=== PATIENT | female | born 2000 | race Caucasian/White ===

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

== ENCOUNTER 2021-04-08 16:46 | Emergency (ER) | payer OTHER ==
[~2021-04-08] VITALS: Ht 154.9 cm; Wt 68.0 kg
[2021-04-08 16:53] VITALS: BP 127/74
--- NOTE | 2021-04-08 16:55 | NUR ---
PT TO AWAIT IN LOBBY
--- NOTE | 2021-04-08 18:00 | NUR ---
PT AMBULATED TO BED, MOTHER AT BEDSIDE
--- NOTE | 2021-04-08 18:11 | NUR ---
RN at pt bedside for evaluation.
--- NOTE | 2021-04-08 18:17 | NUR ---
Dr. Flores at pt bedside for further evaluation.
--- NOTE | 2021-04-08 18:26 | NUR ---
20 FEMALE WITH C/O UTI S/S SINCE X3 DAYS. PT STATES BURNING PAIN UPON URINATION. PT STATES 10/10 PAIN. PT STATES SHE HAS EXPERINCED VAGINAL DISCHARGE THIS AM. RX: IBUPROFEN WITH NO RELIEF MEDHX: DENIES NKA
[2021-04-08] MEDS ORDERED: PYR100 PO (18:32)
[2021-04-08] MEDS ORDERED: ACET500P13 PO (18:32)
[2021-04-08] MEDS ORDERED: CEPH-588 PO (18:32)
[2021-04-08 18:39] VITALS: BP 124/77
--- NOTE | 2021-04-08 18:40 | NUR ---
Patient discharged with v/s stable. Written and verbal after care instructions given and explained. Patient alert, oriented and verbalized understanding of instructions. Ambulatory with steady gait. All questions addressed prior to discharge. ID band removed. Patient advised to follow up with PMD. Rx of ACETAMINOPHEN 500 MG PO Q6 HRS PRN FOR PAIN, PYRIDIUM 100 MG PO TID AND CEPHALEXIN 500 MG PO BID given. Patient educated on indication of medication including possible reaction and side effects. Opportunity to ask questions provided and answered.
== END 2021-04-08 18:40 | disposition home or self-care (01) ==
LOC: MED 16:46
DX: N39.0 Urinary tract infection, site not specified (principal); E11.9 Type 2 diabetes mellitus without complications
CPT/HCPCS: 81002; 81025; 99283

== ENCOUNTER 2021-12-07 17:10 | Emergency (ER) | payer SELFPAY ==
[~2021-12-07] VITALS: Ht 154.9 cm; Wt 72.6 kg
[~2021-12-07 17:10] MED LIST changes: +ACET500P13 PO; +CEPH-588 PO; +PYR100 PO
[2021-12-07 17:23] VITALS: BP 129/74
--- NOTE | 2021-12-07 17:34 | NUR ---
PT AMB TO BED 12.
[2021-12-07] MEDS ORDERED: NACL 0.9% 1,000 ML IV ONE (17:45)
[2021-12-07] MEDS ORDERED: METOCLOPRAMIDE 10 MG/2 ML INJ VIAL IVP ONE (17:45)
[2021-12-07] MEDS ORDERED: ACETAMINOPHEN EXTRA STRENGTH 500 MG TAB PO ONE (17:55)
--- NOTE | 2021-12-07 18:10 | NUR ---
US AT PT BEDSIDE
--- NOTE | 2021-12-07 18:48 | NUR ---
21 Y/O FEMALE BIB SELF FOR C/O LOWER BACK PAIN, NAUSEA, DIARRHEA, "CRAMPY" LOWER ABD PAIN X TODAY. PT DENIES VAGINAL DISCHARGE, VAGINAL BLEEDING. PT DENIES DYSURIA, CONSTIPATION, HEMATURIA, FEVER OR CHILLS. pT DENIES SOB, COUGH. PT IS ALERT AND ORIENTED X4. BED IN LOWEST POSITION. SIDE RAIL X1. BLOOD SUGAR 221 AT THIS TIME. PMH: DM TYPE 2 MED : METFORMIN
[2021-12-07 18:53] LABS: BASOPHILS # (AUTO) 0.1 K/uL (0.00-0.22); BASOPHILS % (AUTO) 0.5 % (0.0-2.0); EOSINOPHILS # (AUTO) 0.2 K/uL (0-0.4); EOSINOPHILS % (AUTO) 2.3 % (0.0-4.0); HEMOGLOBIN 12.9 g/dL (12.0-16.0); LYMPHOCYTES # (AUTO) 2.8 K/uL (2.5-16.5); LYMPHOCYTES % (AUTO) 26.8 % (20.5-51.1); MEAN CORPUSCULAR HEMOGLOBIN 31 pg (27-31); MEAN CORPUSCULAR HGB CONC 35 g/dL (33-37); MEAN CORPUSCULAR VOLUME 88.7 fL (80-94); MONOCYTES # (AUTO) 0.6 K/uL (0.8-1.0); MONOCYTES % (AUTO) 6.3 % (1.7-9.3); NEUTROPHILS # (AUTO) 6.6 K/uL (1.8-7.7); NEUTROPHILS % (AUTO) 64.1 % (42.2-75.2); PLATELET COUNT (AUTO) 311 K/uL (140-450); RED BLOOD CELL COUNT(AUTO) 4.17 MIL/uL (4.20-5.40); RED CELL DISTRIBUTION WIDTH 12.4 % (11.6-13.7); WHITE BLOOD COUNT (AUTO) 10.4 K/uL (4.5-11.0)
[2021-12-07 19:06] LABS: ALBUMIN 3.2 g/dL (3.4-5.0); ANION GAP 14.3 (8-16); CARBON DIOXIDE 23.2 mmol/L (21-32); CREATININE 0.5 mg/dL (0.6-1.3); POTASSIUM 3.5 mmol/L (3.5-5.1); TOTAL BILIRUBIN 0.4 mg/dL (0.0-1.0)
[2021-12-07 19:11] LABS: BILIRUBIN,URINE NEGATIVE (NEGATIVE); BLOOD, URINE NEGATIVE (NEGATIVE); LEUKOCYTE ESTERASE ,URINE NEGATIVE (NEGATIVE); NITRITE, URINE POSITIVE (NEGATIVE); UGLUCOSE 3+ (NEGATIVE)
[2021-12-07 19:21] LABS: APPEARANCE,URINE HAZY (CLEAR); COLOR,URINE YELLOW (YELLOW)
--- NOTE | 2021-12-07 19:30 | NUR ---
Pt report given to REJI YANG. Transfer of care at this time.
[2021-12-07] MEDS ORDERED: CEPH-588 PO (19:37)
[2021-12-07] MEDS ORDERED: ACET-10509 PO (19:37)
[2021-12-07 19:49] VITALS: BP 112/70
--- NOTE | 2021-12-07 19:50 | NUR ---
Patient discharged with v/s stable. Written and verbal after care instructions given and explained. Patient alert, oriented and verbalized understanding of instructions. Ambulatory with steady gait. All questions addressed prior to discharge. ID band removed. Patient advised to follow up with PMD. Rx of KEFLEX, TYLENOL given. Patient educated on indication of medication including possible reaction and side effects. Opportunity to ask questions provided and answered.
== END 2021-12-07 19:50 | disposition home or self-care (01) ==
LOC: MED 17:10
DX: O23.41 Unspecified infection of urinary tract in pregnancy, first trimester (principal); E11.9 Type 2 diabetes mellitus without complications; Z79.84 Long term (current) use of oral hypoglycemic drugs; Z79.899 Other long term (current) drug therapy
CPT/HCPCS: 36415; 76801; 80053; 81003; 81025; 82948; 84702; 85025; 96361; 96374; 99284; J2765; J7030; Q0092

== ENCOUNTER 2022-01-04 18:14 | Emergency (ER) | payer MEDICAID ==
[~2022-01-04] VITALS: Ht 154.9 cm; Wt 71.7 kg
[~2022-01-04 18:14] MED LIST changes: +ACET-10509 PO
[2022-01-04 18:31] VITALS: BP 131/78
--- NOTE | 2022-01-04 18:50 | NUR ---
C/O 6/10 LOWER BACK PAIN X 1 WEEK. 11 WEEKS. LMP 10/14/21. BLOOD SUGAR 200 AT THIS TIME. PMH: DM TYPE 2 MED: NONE
[2022-01-04] MEDS ORDERED: ACETAMINOPHEN EXTRA STRENGTH 500 MG TAB PO ONE (19:00)
--- NOTE | 2022-01-04 19:35 | NUR ---
Patient ambulated to bed 3 and change to a gown.
[2022-01-04 21:55] LABS: BILIRUBIN,URINE NEGATIVE (NEGATIVE); BLOOD, URINE NEGATIVE (NEGATIVE); COLOR,URINE YELLOW (YELLOW); LEUKOCYTE ESTERASE ,URINE NEGATIVE (NEGATIVE); NITRITE, URINE POSITIVE (NEGATIVE); PH,URINE 5.5 (5.0-9.0); UGLUCOSE 3+ (NEGATIVE)
[2022-01-04 22:03] LABS: APPEARANCE,URINE HAZY (CLEAR)
[2022-01-04] MEDS ORDERED: NITR100C7 PO (22:12)
[2022-01-04 22:39] VITALS: BP 128/70
== END 2022-01-04 22:41 | disposition home or self-care (01) ==
LOC: MED 18:14
DX: O23.41 Unspecified infection of urinary tract in pregnancy, first trimester (principal); E11.9 Type 2 diabetes mellitus without complications; Z3A.11 11 weeks gestation of pregnancy; Z79.84 Long term (current) use of oral hypoglycemic drugs; Z79.899 Other long term (current) drug therapy
CPT/HCPCS: 81003; 81025; 99283

== ENCOUNTER 2022-01-16 11:46 | Emergency (ER) | payer MEDICAID ==
[~2022-01-16] VITALS: Ht 154.9 cm; Wt 71.2 kg
[~2022-01-16 11:46] MED LIST changes: +NITR100C7 PO
[2022-01-16 11:51] VITALS: BP 119/66
--- NOTE | 2022-01-16 12:11 | NUR ---
PA MAZARIEGOS BEDSIDE EVALUATING PT
--- NOTE | 2022-01-16 12:14 | NUR ---
21/F BIBA FROM HOME WITH C/O BACK PAIN AND N/V SINCE THIS MORNING. PATIENT STATES SHE IS "AROUND 3 MONTHS ." DENIES ABDOMINAL PAIN OR VAGINAL BLEEDING. PATIENT IS A0. PATIENT STATES SHE HAS HX OF DM BUT IS NOT ON MEDICATION. PT STATED BACK PAIN IS 7/10 AND ACHE LIKE PAIN. PER PATIENT SHE IS ABLE TO DRINK WATER, BUT EATING FOOD MAKES HER EXPERINCE THE NAUSEA. PT WAS EXPERINCING SOME MINOR LOWER ABDOMINAL PAIN THIS AM, BUT DENIES ANY RIGHT NOW. NO TENDERNESS NOTED UPON PALPATION OF ABDOMEN MEDHX: DM ALLERGIES: NKA
[2022-01-16] MEDS ORDERED: NACL 0.9% 1,000 ML IV ONE (12:15)
[2022-01-16] MEDS ORDERED: ONDANSETRON 4 MG/2 ML VIAL IVP ONE (12:20)
--- NOTE | 2022-01-16 12:31 | NUR ---
PT PROVIDED WITH WARM BLANKET
--- NOTE | 2022-01-16 12:31 | NUR ---
20G IV ESTABLISHED IN R AC. FLUIDS STARTED AND BLOOD COLLECTED FROM IV
--- NOTE | 2022-01-16 12:38 | NUR ---
BLOOD COLLECTED AND WALKED TO LAB
[2022-01-16 12:49] LABS: BASOPHILS # (AUTO) 0.1 K/uL (0.00-0.22); BASOPHILS % (AUTO) 0.5 % (0.0-2.0); EOSINOPHILS # (AUTO) 0.2 K/uL (0-0.4); EOSINOPHILS % (AUTO) 1.1 % (0.0-4.0); HEMATOCRIT 39.3 % (36-48); HEMOGLOBIN 13.4 g/dL (12.0-16.0); LYMPHOCYTES # (AUTO) 1.4 K/uL (2.5-16.5); LYMPHOCYTES % (AUTO) 9.6 % (20.5-51.1); MEAN CORPUSCULAR HEMOGLOBIN 31 pg (27-31); MEAN CORPUSCULAR HGB CONC 34 g/dL (33-37); MONOCYTES # (AUTO) 0.6 K/uL (0.8-1.0); MONOCYTES % (AUTO) 4.5 % (1.7-9.3); NEUTROPHILS # (AUTO) 12.1 K/uL (1.8-7.7); NEUTROPHILS % (AUTO) 84.3 % (42.2-75.2); PLATELET COUNT (AUTO) 325 K/uL (140-450); RED BLOOD CELL COUNT(AUTO) 4.36 MIL/uL (4.20-5.40); WHITE BLOOD COUNT (AUTO) 14.4 K/uL (4.5-11.0)
[2022-01-16 13:06] LABS: ALBUMIN 3.3 g/dL (3.4-5.0); CREATININE 0.4 mg/dL (0.6-1.3); TOTAL BILIRUBIN 0.4 mg/dL (0.0-1.0)
[2022-01-16] MEDS ORDERED: DOXY1TAB6 PO (13:29)
[2022-01-16] MEDS ORDERED: METO-485 PO (13:29)
--- NOTE | 2022-01-16 13:44 | NUR ---
Patient appears to be resting comfortably in bed. Vital Signs within normal limits. Respirations even and unlabored.
--- NOTE | 2022-01-16 13:51 | NUR ---
IV removed, catheter intact and site benign. Applied folded 4x4 gauze and tape to stop bleeding.
[2022-01-16 13:54] VITALS: BP 119/55
--- NOTE | 2022-01-16 13:56 | NUR ---
Patient discharged with v/s stable. Written and verbal after care instructions given and explained. Patient alert, oriented and verbalized understanding of instructions. Ambulatory with steady gait. All questions addressed prior to discharge. ID band removed. Patient advised to follow up with PMD. Rx of REGLAN AND DOXYLAMINE-PYRIDOXINE given. Patient educated on indication of medication including possible reaction and side effects. Opportunity to ask questions provided and answered.
== END 2022-01-16 13:56 | disposition home or self-care (01) ==
LOC: MED 11:46
DX: O21.8 Other vomiting complicating pregnancy (principal); O26.892 Other specified pregnancy related conditions, second trimester; E11.65 Type 2 diabetes mellitus with hyperglycemia; D72.829 Elevated white blood cell count, unspecified; Z79.84 Long term (current) use of oral hypoglycemic drugs; Z79.899 Other long term (current) drug therapy
CPT/HCPCS: 36415; 80053; 81002; 81025; 82948; 83690; 85025; 96361; 96374; 99283; J2405; J7030

== ENCOUNTER 2022-03-08 17:32 | Emergency (ER) | payer MEDICAID, OTHER ==
[~2022-03-08] VITALS: Ht 154.9 cm; Wt 72.6 kg
[~2022-03-08 17:32] MED LIST changes: +DOXY1TAB6 PO; +METF-346 PO; -METF500T PO; +METO-485 PO
[2022-03-08 17:46] VITALS: BP 116/68
--- NOTE | 2022-03-08 17:57 | NUR ---
PT AMB TO BED 4.
[2022-03-08] MEDS ORDERED: NACL 0.9% 1,000 ML IV ONE (18:10)
--- NOTE | 2022-03-08 18:30 | NUR ---
FIRST CONTACT WITH PT. PT REPORTS HEADACHE AND LOWER BACK PAIN STARTING TODAY. NO FALL/TRAUMA. ASSOCIATED GENERALIZED WEAKNESS. SPEECH IS CLEAR WITH NO NEURO DEFICITS. DENIES VISUAL CHANGES, N/V. RESP EVEN AND UNLABORED. WILL CONT TO MONITOR
--- NOTE | 2022-03-08 19:20 | NUR ---
REPORT GIVEN TO YVROSE MENDOZA
--- NOTE | 2022-03-08 20:27 | NUR ---
COVID/MIAH AND FLU SWABS COLECTED AND WALKED TO LAB
--- NOTE | 2022-03-08 21:00 | NUR ---
21 Y/O FEMALE BIBS FROM HOME, C/O 8/10 LOWER BACK PAIN, VOMITING X YESTERDAY AND C/O ROSE, CHILLS, WEAKNESS X TODAY. 5 MONTHS. LMP 10/13/21. BLOOSD SUGAR 119 AT THIS TIME. A/OX4, GCS-15; UNLABORED BREATHING; AMBULATORY W/O ASSISTANCE. PMH: DM TYPE 2 NKA
[2022-03-08] MEDS ORDERED: ACETAMINOPHEN EXTRA STRENGTH 500 MG TAB PO ONE (21:05)
[2022-03-08] MEDS ORDERED: ACETAMINOPHEN EXTRA STRENGTH 500 MG TAB ONE (21:08)
[2022-03-08] MEDS ORDERED: ONDA8TAB87 PO (22:23)
[2022-03-08 23:20] VITALS: BP 112/70
--- NOTE | 2022-03-08 23:21 | NUR ---
Patient discharged with v/s stable. Written and verbal after care instructions given and explained. Patient alert, oriented and verbalized understanding of instructions. Ambulatory with steady gait. All questions addressed prior to discharge. ID band removed. Patient advised to follow up with PMD. Rx of ZOFRAN given. Patient educated on indication of medication including possible reaction and side effects. Opportunity to ask questions provided and answered. VSS, A/OX4, UNLABORED BREATHING, AMBULATORY, AND CALM DEMEANOR.
== END 2022-03-08 23:21 | disposition home or self-care (01) ==
LOC: MED 17:32
DX: O26.892 Other specified pregnancy related conditions, second trimester (principal); M54.50 Low back pain, unspecified; O21.8 Other vomiting complicating pregnancy; Z20.822 Contact with and (suspected) exposure to COVID-19; O24.112 Pre-existing type 2 diabetes mellitus, in pregnancy, second trimester; Z3A.21 21 weeks gestation of pregnancy; Z79.899 Other long term (current) drug therapy; Z79.2 Long term (current) use of antibiotics
CPT/HCPCS: 81002; 81025; 82948; 87426; 87804; 96360; 99283; J7030

== ENCOUNTER 2022-05-19 19:33 | Observation (INO) | payer OTHER ==
[~2022-05-19] VITALS: Ht 154.9 cm; Wt 73.5 kg
[~2022-05-19 19:33] MED LIST changes: +ONDA8TAB87 PO
[2022-05-19] MEDS ORDERED: PREN-556 PO (22:33)
== END 2022-05-19 23:00 | disposition home or self-care (01) ==
LOC: MLD 19:33
PROVIDERS: ADMIT Obstetrics & Gynecology; ATTEND Obstetrics & Gynecology
DX: O26.892 Other specified pregnancy related conditions, second trimester (principal); R10.13 Epigastric pain; Z3A.27 27 weeks gestation of pregnancy
CPT/HCPCS: 82948; G0378

== ENCOUNTER 2022-06-11 07:25 | Observation (INO) | payer OTHER ==
[~2022-06-11] VITALS: Ht 154.9 cm; Wt 72.6 kg
[~2022-06-11 07:25] MED LIST changes: -ACET-10509 PO; -ACET500P13 PO; -CEPH-588 PO; -DOXY1TAB6 PO; -METO-485 PO; -NITR100C7 PO; +PREN-556 PO; -PYR100 PO
[2022-06-11 07:41] VITALS: BP 152/99
[2022-06-11] MEDS ORDERED: LACTATED RINGERS 1,000 ML IV SCH (07:50)
[2022-06-11] MEDS ORDERED: NALBUPHINE 10 MG/ML AMP IVP PRN (08:00)
[2022-06-11] MEDS ORDERED: ONDANSETRON 4 MG/2 ML VIAL IVP PRN (08:00)
[2022-06-11] MEDS ORDERED: ONDANSETRON 4 MG/2 ML VIAL ONE (08:05)
[2022-06-11] MEDS ORDERED: NALBUPHINE 10 MG/ML AMP ONE (08:05)
[2022-06-11] MEDS: TERBUTALINE 1 MG/ML VIAL SUBQ SCH ×2 (08:09→09:13)
[2022-06-11 08:17] LABS: APPEARANCE,URINE CLEAR (CLEAR); BILIRUBIN,URINE NEGATIVE (NEGATIVE); BLOOD, URINE NEGATIVE (NEGATIVE); COLOR,URINE YELLOW (YELLOW); LEUKOCYTE ESTERASE ,URINE NEGATIVE (NEGATIVE); NITRITE, URINE NEGATIVE (NEGATIVE); UGLUCOSE 3+ (NEGATIVE)
[2022-06-11 08:30] LABS: BASOPHILS % (AUTO) 0.3 % (0.0-2.0); EOSINOPHILS % (AUTO) 0.5 % (0.0-4.0); HEMATOCRIT 35.3 % (36-48); HEMOGLOBIN 11.9 g/dL (12.0-16.0); LYMPHOCYTES # (AUTO) 2.7 K/uL (2.5-16.5); LYMPHOCYTES % (AUTO) 31.6 % (20.5-51.1); MEAN CORPUSCULAR HEMOGLOBIN 31 pg (27-31); MEAN CORPUSCULAR HGB CONC 34 g/dL (33-37); MEAN CORPUSCULAR VOLUME 91.1 fL (80-94); MONOCYTES # (AUTO) 0.4 K/uL (0.8-1.0); MONOCYTES % (AUTO) 5.2 % (1.7-9.3); NEUTROPHILS # (AUTO) 5.3 K/uL (1.8-7.7); NEUTROPHILS % (AUTO) 62.4 % (42.2-75.2); PLATELET COUNT (AUTO) 222 K/uL (140-450); RED BLOOD CELL COUNT(AUTO) 3.88 MIL/uL (4.20-5.40); RED CELL DISTRIBUTION WIDTH 13.5 % (11.6-13.7); WHITE BLOOD COUNT (AUTO) 8.5 K/uL (4.8-10.8)
[2022-06-11 08:36] LABS: MAGNESIUM 1.7 mg/dL (1.8-2.4); URIC ACID 4.6 mg/dL (2.6-7.2)
== END 2022-06-11 11:22 | disposition home or self-care (01) ==
LOC: MLD 07:25
PROVIDERS: ADMIT Obstetrics & Gynecology; ATTEND Obstetrics & Gynecology
DX: O62.9 Abnormality of forces of labor, unspecified (principal); Z20.822 Contact with and (suspected) exposure to COVID-19; O24.410 Gestational diabetes mellitus in pregnancy, diet controlled; Z3A.30 30 weeks gestation of pregnancy
CPT/HCPCS: 36415; 81003; 82570; 82731; 83735; 84550; 85025; 87426; 96361; 96372; 96374; 96375; G0378; G0379; J2300; J2405; J3105

== ENCOUNTER 2022-06-15 06:44 | Observation (INO) | payer OTHER ==
[~2022-06-15] VITALS: Ht 154.9 cm; Wt 78.0 kg
[~2022-06-15 06:44] MED LIST changes: -METF-346 PO; -ONDA8TAB87 PO
[2022-06-15 06:52] VITALS: BP 174/96
[2022-06-15] MEDS ORDERED: ONDANSETRON 4 MG/2 ML VIAL IVP PRN (07:15)
[2022-06-15] MEDS ORDERED: NALBUPHINE 10 MG/ML AMP IVP PRN (07:15)
[2022-06-15] MEDS ORDERED: LACTATED RINGERS 1,000 ML IV SCH (07:15)
[2022-06-15] MEDS: TERBUTALINE 1 MG/ML VIAL SUBQ SCH ×2 (07:38→08:12)
[2022-06-15 08:08] LABS: BASOPHILS % (AUTO) 0.4 % (0.0-2.0); EOSINOPHILS % (AUTO) 0.1 % (0.0-4.0); HEMATOCRIT 32.3 % (36-48); HEMOGLOBIN 10.9 g/dL (12.0-16.0); LYMPHOCYTES # (AUTO) 2.5 K/uL (2.5-16.5); LYMPHOCYTES % (AUTO) 20.8 % (20.5-51.1); MEAN CORPUSCULAR HEMOGLOBIN 31 pg (27-31); MEAN CORPUSCULAR HGB CONC 34 g/dL (33-37); MEAN CORPUSCULAR VOLUME 90.8 fL (80-94); MONOCYTES # (AUTO) 0.6 K/uL (0.8-1.0); MONOCYTES % (AUTO) 4.8 % (1.7-9.3); NEUTROPHILS # (AUTO) 8.9 K/uL (1.8-7.7); NEUTROPHILS % (AUTO) 73.9 % (42.2-75.2); PLATELET COUNT (AUTO) 160 K/uL (140-450); RED BLOOD CELL COUNT(AUTO) 3.56 MIL/uL (4.20-5.40); RED CELL DISTRIBUTION WIDTH 13.1 % (11.6-13.7)
[2022-06-15 08:43] LABS: ALBUMIN 1.8 g/dL (3.4-5.0); ANION GAP 15.6 (8-16); CREATININE 0.6 mg/dL (0.6-1.3); POTASSIUM 3.6 mmol/L (3.5-5.1); TOTAL BILIRUBIN 0.5 mg/dL (0.0-1.0)
--- NOTE | 2022-06-15 09:18 | NUR ---
PATIENT HAS BEEN SCREENED AND CATEGORIZED LOW NUTRITION RISK. PATIENT WILL BE SEEN WITHIN 7 DAYS OF ADMISSION. 06/22/22 REVIEWED BY [address]
== END 2022-06-15 10:20 | disposition home or self-care (01) ==
LOC: MLD 06:44
PROVIDERS: ADMIT Obstetrics & Gynecology; ATTEND Obstetrics & Gynecology
DX: O62.9 Abnormality of forces of labor, unspecified (principal); Z20.822 Contact with and (suspected) exposure to COVID-19; Z3A.31 31 weeks gestation of pregnancy
CPT/HCPCS: 36415; 59025; 76705; 80053; 81000; 85025; 87426; 96361; 96372; 96374; 96375; G0378; G0379; J2300; J2405; J3105; Q0092

== ENCOUNTER 2023-03-05 15:48 | Emergency (ER) | payer OTHER ==
[~2023-03-05] VITALS: Ht 157.5 cm; Wt 79.8 kg
[2023-03-05 16:23] VITALS: BP 142/93
[2023-03-05 17:03] LABS: APPEARANCE,URINE SL CLOUDY (CLEAR); BILIRUBIN,URINE NEGATIVE (NEGATIVE); BLOOD, URINE 1+ (NEGATIVE); COLOR,URINE ORANGE (YELLOW); LEUKOCYTE ESTERASE ,URINE NEGATIVE (NEGATIVE); NITRITE, URINE POSITIVE (NEGATIVE); UGLUCOSE 3+ (NEGATIVE)
[2023-03-05 17:05] LABS: BASOPHILS # (AUTO) 0.1 K/uL (0.00-0.22); BASOPHILS % (AUTO) 0.8 % (0.0-2.0); EOSINOPHILS # (AUTO) 0.1 K/uL (0-0.4); EOSINOPHILS % (AUTO) 0.5 % (0.0-4.0); HEMATOCRIT 38.5 % (36-48); LYMPHOCYTES # (AUTO) 2.7 K/uL (2.5-16.5); LYMPHOCYTES % (AUTO) 25.1 % (20.5-51.1); MEAN CORPUSCULAR HEMOGLOBIN 30 pg (27-31); MEAN CORPUSCULAR HGB CONC 34 g/dL (33-37); MEAN CORPUSCULAR VOLUME 88.7 fL (80-94); MONOCYTES # (AUTO) 0.8 K/uL (0.8-1.0); MONOCYTES % (AUTO) 7.1 % (1.7-9.3); NEUTROPHILS # (AUTO) 7.2 K/uL (1.8-7.7); NEUTROPHILS % (AUTO) 66.5 % (42.2-75.2); PLATELET COUNT (AUTO) 269 K/uL (140-450); RED BLOOD CELL COUNT(AUTO) 4.34 MIL/uL (4.20-5.40); RED CELL DISTRIBUTION WIDTH 12.7 % (11.6-13.7); WHITE BLOOD COUNT (AUTO) 10.9 K/uL (4.8-10.8)
[2023-03-05 17:23] LABS: RBC,URINE 11-20 (MOD) /HPF (0-5); YEAST,URINE Moderate /HPF (None Seen)
[2023-03-05 17:23] LABS: ALBUMIN 3.2 g/dL (3.4-5.0); ANION GAP 15.2 (8-16); CARBON DIOXIDE 24.6 mmol/L (21-32); CREATININE 0.6 mg/dL (0.6-1.3); POTASSIUM 3.8 mmol/L (3.5-5.1); TOTAL BILIRUBIN 0.5 mg/dL (0.0-1.0)
--- NOTE | 2023-03-05 19:03 | NUR ---
22yo F PRESENTS W/RLQ PAIN X 2 DAYS, RADIATING TO FLANK, SHARP 8/10, INTERMITANT, PT STATES SHE TOOK TYLENOL WITH LITTLE RELIEF, PT DENIES,DYSURIS,HEMATURIA,VAG BLEED,DISCHARGE, N,V,D,C, FEVER, CHILLS, DIZZINESS, SOB,CP,WEAKNESS. PT HAS VISUAL PAIN TO ABD TOUCH. A&OX4, SAFETY MAINTAINED. HX: C-SEC LAST YR
--- NOTE | 2023-03-05 19:13 | NUR ---
PT TAKEN TO CT
--- NOTE | 2023-03-05 20:37 | NUR ---
Patient discharged with v/s stable. Written and verbal after care instructions given and explained. Patient alert, oriented and verbalized understanding of instructions. Ambulatory with steady gait. All questions addressed prior to discharge. ID band removed. Patient advised to follow up with PMD. Rx of Keflex and Motrin given. Patient educated on indication of medication including possible reaction and side effects. Opportunity to ask questions provided and answered.
[2023-03-05] MEDS ORDERED: CEPH-588 PO (20:39)
[2023-03-05] MEDS ORDERED: IBUP-1842 PO (20:39)
[2023-03-05 21:09] VITALS: BP 119/71
== END 2023-03-05 20:37 | disposition home or self-care (01) ==
LOC: MED 15:48
DX: R10.31 Right lower quadrant pain (principal); E11.9 Type 2 diabetes mellitus without complications; Z79.4 Long term (current) use of insulin; Z79.899 Other long term (current) drug therapy
CPT/HCPCS: 36415; 74177; 80053; 81001; 83690; 84703; 85025; 87086; 99285; Q9967

== ENCOUNTER 2023-11-23 20:28 | Emergency (ER) | payer OTHER ==
[~2023-11-23] VITALS: Ht 154.9 cm; Wt 72.6 kg
[~2023-11-23 20:28] MED LIST changes: +CEPH-588 PO; +IBUP-1842 PO
[2023-11-23 20:48] VITALS: BP 114/76; PULSE 79; RESP 17; TEMP 97.8; O2SAT 100
[2023-11-23] MEDS ORDERED: BENZ1GEL13 MM (22:22)
== END 2023-11-23 22:30 | disposition home or self-care (01) ==
LOC: MED 20:28
DX: K12.0 Recurrent oral aphthae (principal); E11.9 Type 2 diabetes mellitus without complications; Z79.4 Long term (current) use of insulin; Z79.899 Other long term (current) drug therapy
CPT/HCPCS: 99282